=== PATIENT | female | born 1960 | race Caucasian/White ===

== ENCOUNTER → 2017-03-29 | Day surgery (SDC) | payer BC ==
[~2017-03-29] MED LIST: CLARITIN D PO; FLONASE 0.05% N16 G1; IBUPROFEN PO; INHALER INH; NEBULIZER INH; NEXIUM PO; PROMETHAZINE V240 ML PO; PROTONIX PO; ZANTAC PO; ZITHROMAX PO
--- NOTE | ~2017-03-29 | OR ---
Unit #: [id number] #: [id number] Patient: LAKESHIA GODWIN [id number] [address] [address] [id number] MR#: [id number] NAME: LAKESHIA GODWIN ROOM: Date of Procedure: 03/29/2017 Admission Date: 03/29/2017 Surgeon: Ruben Chen III, M.D. : 1960 Attending Physician: Ruben Chen III, M.D. Primary Care Physician: Shailesh Dan M.D. OPERATIVE REPORT PREOPERATIVE DIAGNOSES Dysphagia and reflux. POSTOPERATIVE DIAGNOSES Small to medium hiatal hernia and severe distal esophagitis. PROCEDURE PERFORMED Esophagogastroduodenoscopy with biopsy. ANESTHESIA MAC. SPECIMENS Antrum was sent for ORESTES testing and distal esophagus was biopsied multiple times. INDICATIONS FOR PROCEDURE This is a 57-year-old lady, who I saw in the office with severe dysphagia. She also has reflux. She is not on any proton pump inhibitors at this time. DESCRIPTION OF PROCEDURE After consent was obtained, the patient was brought to the endoscopy suite and placed in left lateral decubitus position. We titrated the above sedation and I passed an EGD scope easily into the esophagus under direct visualization. She had normal peristalsis. She did have some severe esophagitis at the distal esophagus. Sales Specialist biopsies were taken at about 32 cm. The scope was able to be passed through the area of esophagitis; however, there was some mild narrowing. She was also noted to have a small to medium size hiatal hernia. The rest of the stomach appeared relatively normal with no ulcers or masses. The pylorus was patent and the first and second portions of the duodenum appeared normal. I then took a biopsy of the antrum for ORESTES testing. I retroflexed the scope within the cardia and again saw the small to medium hiatal hernia. The scope was straightened and carefully withdrawn. I am going to start her on Protonix twice a day. I will have her call my office early next week for biopsy results and further recommendations are to follow. She is probably going to need repeat screening in approximately 3 months. Dictated by... Ruben Chen III, M.D. Unit #: [id number] #: [id number] Patient: LAKESHIA GODWIN L/modl TD: 03/29/2017 17:58 JOB #: [id number] CC: Shailesh Dan M.D. OPERATIVE REPORT Page 1 of 1 X Ruben Chen III, MD X PROCEDURE OPERATIVE NOTE
== END | disposition home or self-care (01) ==
LOC: COPS 09:15
DX: K21.0 Gastro-esophageal reflux disease with esophagitis (principal); K22.10 Ulcer of esophagus without bleeding; K44.9 Diaphragmatic hernia without obstruction or gangrene; E66.9 Obesity, unspecified; J45.909 Unspecified asthma, uncomplicated; N80.9 Endometriosis, unspecified; D64.9 Anemia, unspecified; M16.9 Osteoarthritis of hip, unspecified; I10 Essential (primary) hypertension; Z68.41 Body mass index [BMI] 40.0-44.9, adult; Z88.2 Allergy status to sulfonamides; Z88.5 Allergy status to narcotic agent; Z98.890 Other specified postprocedural states; Z90.710 Acquired absence of both cervix and uterus; Z96.651 Presence of right artificial knee joint; Z79.899 Other long term (current) drug therapy
CPT/HCPCS: 87077; 88305